=== PATIENT | female | born 1990 | race Caucasian/White ===

== ENCOUNTER 2017-01-07 11:28 | Emergency (ER) | payer OTHER ==
[~2017-01-07] VITALS: Ht 162.6 cm; Wt 113.4 kg
[2017-01-07] MEDS ORDERED: CYMB1CAP5 PO (11:41)
[2017-01-07] MEDS ORDERED: predniSONE 20 MG TAB PO ONE (12:45)
[2017-01-07] MEDS: IPRATROPIUM 0.5MG/ALBUTEROL 2.5MG INH SOL UD 3ML (DUONEB)(J7620) NEB SCH ×2 (12:57→13:02)
[2017-01-07] MEDS ORDERED: MUCI600T34 PO (13:43)
[2017-01-07] MEDS ORDERED: AUGM875T27 PO (13:43)
[2017-01-07] MEDS ORDERED: XOPEAER INH (13:43)
[2017-01-07] MEDS ORDERED: PRED20TA PO (13:43)
[2017-01-07] MEDS ORDERED: AUGMENTIN 875 MG TAB PO ONE (13:45)
[2017-01-07 13:53] VITALS: BP 148/76
--- NOTE | 2017-01-07 14:03 | REP ---
CHEST, TWO VIEWS: HISTORY: Cough. FINDINGS: The superior mediastinal structures are midline. The cardiac silhouette is unremarkable in size, shape and position. The diaphragmatic surfaces of the lungs are regular and the costophrenic angles are clear. The pulmonary mckeon are clear. The imaged osseous structures are intact. IMPRESSION: There is no acute cardiopulmonary disease. Signed by Valdo Lujan DO 01/07/2017 02:47 P
[2017-01-07] MEDS ORDERED: DIFL150T PO (14:14)
[2017-01-07] MEDS ORDERED: FLUCONAZOLE 50MG TABLET PO ONE (14:15)
== END 2017-01-07 14:17 | disposition home or self-care (01) ==
LOC: M ED 12:33
DX: J01.90 Acute sinusitis, unspecified (principal); J20.9 Acute bronchitis, unspecified; Z79.899 Other long term (current) drug therapy

== ENCOUNTER 2017-05-17 17:44 | Emergency (ER) | payer OTHER ==
[~2017-05-17] VITALS: Ht 162.6 cm; Wt 113.6 kg
[~2017-05-17 17:44] MED LIST: AUGM875T28 PO; CYMB1CAP5 PO; DIFL150T PO; LEVAINH INH; MUCI600T37 PO; PRED20TA PO
[2017-05-17 17:45] VITALS: BP 146/87
[2017-05-17] MEDS ORDERED: ADACEL/BOOSTRIX VACCINE (DIPHTH/PERTUSS/ACELL/TETANUS)0.5ML SYR (90715) IM ONE (18:30)
== END 2017-05-17 18:37 | disposition home or self-care (01) ==
LOC: M ED 17:44
DX: S61.205A Unspecified open wound of left ring finger without damage to nail, initial encounter (principal); W31.82XA Contact with other commercial machinery, initial encounter; Y92.89 Other specified places as the place of occurrence of the external cause; Y93.9 Activity, unspecified; Y99.9 Unspecified external cause status; Z79.899 Other long term (current) drug therapy

== ENCOUNTER → 2017-06-15 | Outpatient (CLI) | payer OTHER ==
--- NOTE | 2017-06-15 13:49 | REP ---
Pelvic sonography: History: Vaginal spotting. Findings: Transabdominal and transvaginal scanning are performed. Uterine dimensions are normal at 7.7 x 3.6 x 4.8 cm. Endometrial echo 0.7 cm thick and centrally placed. There are Nabothian cysts in the cervix. There is a trace of fluid in the endometrium. No focal uterine mass is seen. Visualized urinary bladder zepeda are smooth. Normal right ovary is seen measuring 2.4 x 1.6 x 3.2 cm. It contains a 1.2 cm follicle cyst and a normal Doppler flow pattern with resistive index 0.61. The left ovary is normal measuring 2.5 x 2.0 x 1.4 cm. Its normal Doppler flow resistive index is 0.58. Impression: Normal pelvic sonography. Signed by Ryan Fagan MD 06/15/2017 03:15 P
== END ==
LOC: M RAD 09:51
PROVIDERS: ATTEND Internal Medicine
DX: N88.8 Other specified noninflammatory disorders of cervix uteri (principal); N83.01 Follicular cyst of right ovary

== ENCOUNTER → 2017-10-26 | Outpatient (REF) | payer OTHER | LOC: M SFHCLERA 15:42 | DX: J02.9 Acute pharyngitis, unspecified (principal) ==